=== PATIENT | female | born 1975 | race African-American/Black ===

== ENCOUNTER 2022-11-23 11:26 | Inpatient (IN) | payer OTHER ==
[2022-11-23 12:09] VITALS: BMI 27.4
[2022-11-23] MEDS ORDERED: guaiFENesin 600 MG TABLET.ER (FP) PO PRN (12:47)
[2022-11-23] MEDS ORDERED: BENZONATATE 200 MG CAPSULE PO PRN (12:47)
[2022-11-23] MEDS ORDERED: POLYETHYLENE GLYCOL (HEALTHYLAX) 3350 17 GM PACKET PO PRN (12:47)
[2022-11-23] MEDS ORDERED: MAGNESIUM HYDROX 2400MG/30ML ORAL SUSPENSION 30 ML CUP PO PRN (12:47)
[2022-11-23] MEDS ORDERED: NICOTINE POLACRILEX 2 MG GUM BUC PRN (12:47)
[2022-11-23] MEDS ORDERED: AMMONIUM LACTATE 12% LOTION 225 GM BOTTLE TP PRN (12:47)
[2022-11-23] MEDS ORDERED: MAG HYDROX/AL HYDROX/SIMETH 30 ML UNIT-DOSE CUP PO PRN (12:47)
[2022-11-23] MEDS ORDERED: P-EPHED 60MG/TRIPROLIDI 2.5MG TABLET PO PRN (12:47)
[2022-11-23] MEDS ORDERED: LOPERAMIDE HCL 2 MG CAPSULE PO PRN (12:47)
[2022-11-23] MEDS ORDERED: BENZOCAINE/MENTHOL (CHLORASEPTIC ) LOZENGE MM PRN (12:47)
[2022-11-23] MEDS ORDERED: COLLOIDAL OATMEAL 1 BAR EACH TP PRN (12:47)
[2022-11-23] MEDS ORDERED: TUBERCULIN PPD 5 TU/0.1ML VIAL ID ONE (14:53)
[2022-11-23] MEDS ORDERED: ALBUTEROL SO4 HFA INHALER IH PRN (15:06)
[2022-11-23 16:31] LABS: HEMATOCRIT 44.7 % (32.4-45.2); HEMOGLOBIN 15.2 GM/dL (10.7-15.3); MCH 33.4 pg (25.7-33.7); MEAN CELL VOLUME 98.1 fl (80-96); PLATELET COUNT 230 10^3/uL (134-434); RBC 4.55 M/mm3 (3.60-5.2); RDW 13.8 % (11.6-15.6); WHITE BLOOD COUNT 7.5 K/mm3 (4.0-10.0)
[2022-11-23 16:34] LABS: POTASSIUM 3.8 mmol/L (3.5-5.1)
[2022-11-23 16:36] LABS: ALBUMIN 3.6 g/dl (3.4-5.0); BLOOD UREA NITROGEN 11.5 mg/dL (7-18); CALCIUM 9.4 mg/dL (8.5-10.1)
[2022-11-23 16:40] LABS: CREATININE 0.8 mg/dL (0.55-1.3)
[2022-11-23 16:41] LABS: BILIRUBIN,TOTAL 0.4 mg/dL (0.2-1); TOT PROT 7.4 g/dl (6.4-8.2)
[2022-11-23 17:05] LABS: SYPHILIS W/ RPR CONF NON-REACTIVE (NONREACTIVE)
[2022-11-23] MEDS: CEPHALEXIN MONOHYDRATE 500 MG CAPSULE (UD) PO SCH ×2 (17:53→21:20)
[2022-11-23] MEDS: MELATONIN 5 MG TABLETS PO PRN (21:19)
[2022-11-23] MEDS: THIAMINE HCL 100 MG TABLET (FP) PO SCH (21:20)
[2022-11-23] MEDS: levETIRAcetam 500 MG TABLET (FP) PO SCH (21:22)
[2022-11-23] MEDS: BUDESONIDE/FORMETEROL FUMARATE 80/4.5 mcg INHALER IH SCH (21:22)
[2022-11-24] MEDS: PRENATAL VITAMINS W/ FOLIC ACID TABLET (FP) PO SCH (09:57)
[2022-11-24] MEDS: ARIPiprazole 10 MG TABLET PO SCH (09:59)
[2022-11-24] MEDS: DOCUSATE SODIUM 100 MG CAPSULE (FP) PO SCH (09:59)
[2022-11-24] MEDS: CEPHALEXIN MONOHYDRATE 500 MG CAPSULE (UD) PO SCH ×4 (09:59→21:38)
[2022-11-24] MEDS: levETIRAcetam 500 MG TABLET (FP) PO SCH ×2 (09:59→21:38)
[2022-11-24] MEDS: BUDESONIDE/FORMETEROL FUMARATE 80/4.5 mcg INHALER IH SCH ×2 (10:44→21:38)
[2022-11-24] MEDS: THIAMINE HCL 100 MG TABLET (FP) PO SCH (21:38)
[2022-11-24] MEDS: MELATONIN 5 MG TABLETS PO PRN (21:39)
[2022-11-25] MEDS: levETIRAcetam 500 MG TABLET (FP) PO SCH ×2 (09:46→21:42)
[2022-11-25] MEDS: DOCUSATE SODIUM 100 MG CAPSULE (FP) PO SCH (09:46)
[2022-11-25] MEDS: CEPHALEXIN MONOHYDRATE 500 MG CAPSULE (UD) PO SCH ×4 (09:46→21:43)
[2022-11-25] MEDS: BUDESONIDE/FORMETEROL FUMARATE 80/4.5 mcg INHALER IH SCH ×2 (09:46→21:42)
[2022-11-25] MEDS: PRENATAL VITAMINS W/ FOLIC ACID TABLET (FP) PO SCH (09:46)
[2022-11-25] MEDS: ARIPiprazole 10 MG TABLET PO SCH (09:46)
[2022-11-25] MEDS: LUMATEPERONE TOSYLATE 42 MG PO SCH (10:45)
[2022-11-25] MEDS: MELATONIN 5 MG TABLETS PO PRN (21:43)
[2022-11-25] MEDS: THIAMINE HCL 100 MG TABLET (FP) PO SCH (21:43)
[2022-11-26] MEDS: LUMATEPERONE TOSYLATE 42 MG PO SCH (07:07)
[2022-11-26] MEDS: levETIRAcetam 500 MG TABLET (FP) PO SCH ×2 (09:51→21:23)
[2022-11-26] MEDS: CEPHALEXIN MONOHYDRATE 500 MG CAPSULE (UD) PO SCH ×4 (09:51→21:22)
[2022-11-26] MEDS: ARIPiprazole 10 MG TABLET PO SCH (09:51)
[2022-11-26] MEDS: DOCUSATE SODIUM 100 MG CAPSULE (FP) PO SCH (09:51)
[2022-11-26] MEDS: PRENATAL VITAMINS W/ FOLIC ACID TABLET (FP) PO SCH (09:51)
[2022-11-26] MEDS: BUDESONIDE/FORMETEROL FUMARATE 80/4.5 mcg INHALER IH SCH ×2 (09:52→21:23)
[2022-11-26] MEDS ORDERED: BENZOCAINE 20 % GEL TUBE MM PRN (10:01)
[2022-11-26] MEDS: IBUPROFEN 600 MG TABLET (FP) PO PRN (11:49)
[2022-11-26] MEDS: MELATONIN 5 MG TABLETS PO PRN (21:23)
[2022-11-26] MEDS: THIAMINE HCL 100 MG TABLET (FP) PO SCH (21:23)
[2022-11-27] MEDS: LUMATEPERONE TOSYLATE 42 MG PO SCH (07:10)
[2022-11-27] MEDS: DOCUSATE SODIUM 100 MG CAPSULE (FP) PO SCH (09:57)
[2022-11-27] MEDS: levETIRAcetam 500 MG TABLET (FP) PO SCH ×2 (09:57→21:43)
[2022-11-27] MEDS: CEPHALEXIN MONOHYDRATE 500 MG CAPSULE (UD) PO SCH ×4 (09:57→21:43)
[2022-11-27] MEDS: BUDESONIDE/FORMETEROL FUMARATE 80/4.5 mcg INHALER IH SCH ×2 (09:57→21:44)
[2022-11-27] MEDS: ARIPiprazole 10 MG TABLET PO SCH (09:57)
[2022-11-27] MEDS: PRENATAL VITAMINS W/ FOLIC ACID TABLET (FP) PO SCH (09:58)
[2022-11-27] MEDS: IBUPROFEN 600 MG TABLET (FP) PO PRN (09:59)
[2022-11-27 13:38] LABS: URINE APPEARANCE CLEAR; URINE BILIRUBIN NEGATIVE (NEGATIVE); URINE COLOR YELLOW; URINE GLUCOSE (UA) NEGATIVE (NEGATIVE); URINE KETONE NEGATIVE (NEGATIVE); URINE LEUK ESTERASE NEGATIVE (NEGATIVE); URINE NITRITE NEGATIVE (NEGATIVE); URINE PROTEIN NEGATIVE (NEGATIVE); URINE UROBILINOGEN 0.2 mg/dL (0.2-1.0)
[2022-11-27] MEDS: IBUPROFEN 400 MG TABLET (FP) PO PRN (14:38)
[2022-11-27] MEDS: THIAMINE HCL 100 MG TABLET (FP) PO SCH (21:43)
[2022-11-28] MEDS: LUMATEPERONE TOSYLATE 42 MG PO SCH (07:35)
[2022-11-28] MEDS: BUDESONIDE/FORMETEROL FUMARATE 80/4.5 mcg INHALER IH SCH ×2 (09:55→22:57)
[2022-11-28] MEDS: DOCUSATE SODIUM 100 MG CAPSULE (FP) PO SCH (09:56)
[2022-11-28] MEDS: levETIRAcetam 500 MG TABLET (FP) PO SCH ×2 (09:56→22:57)
[2022-11-28] MEDS: ARIPiprazole 10 MG TABLET PO SCH (09:56)
[2022-11-28] MEDS: IBUPROFEN 400 MG TABLET (FP) PO PRN (09:56)
[2022-11-28] MEDS: CEPHALEXIN MONOHYDRATE 500 MG CAPSULE (UD) PO SCH ×4 (09:56→22:57)
[2022-11-28] MEDS: PRENATAL VITAMINS W/ FOLIC ACID TABLET (FP) PO SCH (09:56)
[2022-11-28] MEDS ORDERED: LORazepam 2 MG/ML SDV VIAL IM ONE (19:10)
[2022-11-28] MEDS: THIAMINE HCL 100 MG TABLET (FP) PO SCH (22:58)
[2022-11-29] MEDS: LUMATEPERONE TOSYLATE 42 MG PO SCH (07:03)
[2022-11-29] MEDS: BUDESONIDE/FORMETEROL FUMARATE 80/4.5 mcg INHALER IH SCH ×2 (10:26→21:36)
[2022-11-29] MEDS: CEPHALEXIN MONOHYDRATE 500 MG CAPSULE (UD) PO SCH ×4 (10:26→21:35)
[2022-11-29] MEDS: levETIRAcetam 500 MG TABLET (FP) PO SCH ×2 (10:26→21:35)
[2022-11-29] MEDS: DOCUSATE SODIUM 100 MG CAPSULE (FP) PO SCH (10:26)
[2022-11-29] MEDS: IBUPROFEN 400 MG TABLET (FP) PO PRN (10:26)
[2022-11-29] MEDS: ARIPiprazole 10 MG TABLET PO SCH (10:26)
[2022-11-29] MEDS: PRENATAL VITAMINS W/ FOLIC ACID TABLET (FP) PO SCH (10:32)
[2022-11-29 15:38] VITALS: RESP 18
[2022-11-29] MEDS: THIAMINE HCL 100 MG TABLET (FP) PO SCH (21:35)
[2022-11-30] MEDS: IBUPROFEN 600 MG TABLET (FP) PO PRN (01:11)
[2022-11-30] MEDS: LUMATEPERONE TOSYLATE 42 MG PO SCH (07:13)
[2022-11-30] MEDS: levETIRAcetam 500 MG TABLET (FP) PO SCH ×2 (09:54→21:21)
[2022-11-30] MEDS: ARIPiprazole 10 MG TABLET PO SCH (09:54)
[2022-11-30] MEDS: PRENATAL VITAMINS W/ FOLIC ACID TABLET (FP) PO SCH (09:54)
[2022-11-30] MEDS: CEPHALEXIN MONOHYDRATE 500 MG CAPSULE (UD) PO SCH ×2 (09:54→13:08)
[2022-11-30] MEDS: BUDESONIDE/FORMETEROL FUMARATE 80/4.5 mcg INHALER IH SCH ×2 (09:54→21:22)
[2022-11-30] MEDS: DOCUSATE SODIUM 100 MG CAPSULE (FP) PO SCH (09:54)
[2022-11-30] MEDS: MELATONIN 5 MG TABLETS PO PRN (21:22)
[2022-11-30] MEDS: THIAMINE HCL 100 MG TABLET (FP) PO SCH (21:22)
[2022-12-01] MEDS: LUMATEPERONE TOSYLATE 42 MG PO SCH (07:13)
[2022-12-01] MEDS: PRENATAL VITAMINS W/ FOLIC ACID TABLET (FP) PO SCH (10:12)
[2022-12-01] MEDS: ARIPiprazole 10 MG TABLET PO SCH (10:12)
[2022-12-01] MEDS: BUDESONIDE/FORMETEROL FUMARATE 80/4.5 mcg INHALER IH SCH ×2 (10:12→21:15)
[2022-12-01] MEDS: levETIRAcetam 500 MG TABLET (FP) PO SCH ×2 (10:12→21:16)
[2022-12-01] MEDS: DOCUSATE SODIUM 100 MG CAPSULE (FP) PO SCH (10:12)
[2022-12-01] MEDS: IBUPROFEN 600 MG TABLET (FP) PO PRN (20:40)
[2022-12-01] MEDS: MELATONIN 5 MG TABLETS PO PRN (21:16)
[2022-12-01] MEDS: THIAMINE HCL 100 MG TABLET (FP) PO SCH (21:16)
[2022-12-02] MEDS: LUMATEPERONE TOSYLATE 42 MG PO SCH (07:01)
[2022-12-02] MEDS: IBUPROFEN 600 MG TABLET (FP) PO PRN ×2 (09:02→21:19)
[2022-12-02] MEDS: PRENATAL VITAMINS W/ FOLIC ACID TABLET (FP) PO SCH (09:02)
[2022-12-02] MEDS: levETIRAcetam 500 MG TABLET (FP) PO SCH ×2 (09:02→21:19)
[2022-12-02] MEDS: ARIPiprazole 10 MG TABLET PO SCH (09:02)
[2022-12-02] MEDS: DOCUSATE SODIUM 100 MG CAPSULE (FP) PO SCH (09:02)
[2022-12-02] MEDS: BUDESONIDE/FORMETEROL FUMARATE 80/4.5 mcg INHALER IH SCH ×2 (09:03→21:59)
[2022-12-02] MEDS: THIAMINE HCL 100 MG TABLET (FP) PO SCH (21:19)
[2022-12-02] MEDS: MELATONIN 5 MG TABLETS PO PRN (21:19)
[2022-12-03] MEDS: LUMATEPERONE TOSYLATE 42 MG PO SCH (07:10)
[2022-12-03] MEDS: PRENATAL VITAMINS W/ FOLIC ACID TABLET (FP) PO SCH (09:45)
[2022-12-03] MEDS: BUDESONIDE/FORMETEROL FUMARATE 80/4.5 mcg INHALER IH SCH ×2 (09:45→21:24)
[2022-12-03] MEDS: ARIPiprazole 10 MG TABLET PO SCH (09:45)
[2022-12-03] MEDS: IBUPROFEN 400 MG TABLET (FP) PO PRN ×3 (09:46→21:25)
[2022-12-03] MEDS: levETIRAcetam 500 MG TABLET (FP) PO SCH ×2 (09:46→21:24)
[2022-12-03] MEDS: DOCUSATE SODIUM 100 MG CAPSULE (FP) PO SCH (09:46)
[2022-12-03] MEDS: NICOTINE 10 MG CARTRIDGE (INHALER) IH PRN (18:53)
[2022-12-03] MEDS: THIAMINE HCL 100 MG TABLET (FP) PO SCH (21:24)
[2022-12-04] MEDS: ACETAMINOPHEN 325 MG TABLET (FP) PO PRN ×3 (00:56→21:15)
[2022-12-04] MEDS: LUMATEPERONE TOSYLATE 42 MG PO SCH (07:55)
[2022-12-04] MEDS: BUDESONIDE/FORMETEROL FUMARATE 80/4.5 mcg INHALER IH SCH ×2 (09:32→21:14)
[2022-12-04] MEDS: PRENATAL VITAMINS W/ FOLIC ACID TABLET (FP) PO SCH (09:32)
[2022-12-04] MEDS: levETIRAcetam 500 MG TABLET (FP) PO SCH ×2 (09:32→21:15)
[2022-12-04] MEDS: ARIPiprazole 10 MG TABLET PO SCH (09:32)
[2022-12-04] MEDS: DOCUSATE SODIUM 100 MG CAPSULE (FP) PO SCH (09:32)
[2022-12-04] MEDS: IBUPROFEN 600 MG TABLET (FP) PO PRN (09:33)
[2022-12-04] MEDS: NICOTINE 10 MG CARTRIDGE (INHALER) IH PRN (17:52)
[2022-12-04] MEDS: MELATONIN 5 MG TABLETS PO PRN (21:15)
[2022-12-04] MEDS: THIAMINE HCL 100 MG TABLET (FP) PO SCH (21:15)
[2022-12-05] MEDS: LUMATEPERONE TOSYLATE 42 MG PO SCH (07:05)
[2022-12-05] MEDS: PRENATAL VITAMINS W/ FOLIC ACID TABLET (FP) PO SCH (09:56)
[2022-12-05] MEDS: ARIPiprazole 10 MG TABLET PO SCH (09:56)
[2022-12-05] MEDS: levETIRAcetam 500 MG TABLET (FP) PO SCH ×2 (09:57→21:25)
[2022-12-05] MEDS: DOCUSATE SODIUM 100 MG CAPSULE (FP) PO SCH (09:57)
[2022-12-05] MEDS: BUDESONIDE/FORMETEROL FUMARATE 80/4.5 mcg INHALER IH SCH ×2 (09:58→21:25)
[2022-12-05] MEDS: ACETAMINOPHEN 325 MG TABLET (FP) PO PRN ×2 (09:58→16:48)
[2022-12-05] MEDS ORDERED: ACETAMINOPHEN 325 MG TABLET (FP) ONE (16:47)
[2022-12-05] MEDS: THIAMINE HCL 100 MG TABLET (FP) PO SCH (21:25)
[2022-12-05] MEDS: MELATONIN 5 MG TABLETS PO PRN (21:25)
[2022-12-06] MEDS: LUMATEPERONE TOSYLATE 42 MG PO SCH (07:10)
[2022-12-06] MEDS: DOCUSATE SODIUM 100 MG CAPSULE (FP) PO SCH (09:56)
[2022-12-06] MEDS: ARIPiprazole 10 MG TABLET PO SCH (09:56)
[2022-12-06] MEDS: PRENATAL VITAMINS W/ FOLIC ACID TABLET (FP) PO SCH (09:56)
[2022-12-06] MEDS: levETIRAcetam 500 MG TABLET (FP) PO SCH ×3 (09:56→21:11)
[2022-12-06] MEDS: BUDESONIDE/FORMETEROL FUMARATE 80/4.5 mcg INHALER IH SCH ×2 (09:58→21:11)
[2022-12-06] MEDS: IBUPROFEN 600 MG TABLET (FP) PO PRN ×2 (09:59→20:18)
[2022-12-06] MEDS ORDERED: levETIRAcetam 500 MG TABLET (FP) PO ONE (10:01)
[2022-12-06] MEDS: ACETAMINOPHEN 325 MG TABLET (FP) PO PRN (11:59)
[2022-12-06] MEDS: THIAMINE HCL 100 MG TABLET (FP) PO SCH (21:11)
[2022-12-07] MEDS: ACETAMINOPHEN 325 MG TABLET (FP) PO PRN (06:11)
[2022-12-07] MEDS: LUMATEPERONE TOSYLATE 42 MG PO SCH (07:32)
[2022-12-07] MEDS: DOCUSATE SODIUM 100 MG CAPSULE (FP) PO SCH (10:06)
[2022-12-07] MEDS: PRENATAL VITAMINS W/ FOLIC ACID TABLET (FP) PO SCH (10:06)
[2022-12-07] MEDS: ARIPiprazole 10 MG TABLET PO SCH (10:06)
[2022-12-07] MEDS: BUDESONIDE/FORMETEROL FUMARATE 80/4.5 mcg INHALER IH SCH ×2 (10:06→21:19)
[2022-12-07] MEDS: levETIRAcetam 500 MG TABLET (FP) PO SCH ×2 (10:07→21:19)
[2022-12-07] MEDS: METHOCARBAMOL 500 MG TABLET PO PRN ×2 (10:08→21:19)
[2022-12-07] MEDS: IBUPROFEN 600 MG TABLET (FP) PO PRN (15:21)
[2022-12-07] MEDS: THIAMINE HCL 100 MG TABLET (FP) PO SCH (21:19)
[2022-12-07] MEDS: IBUPROFEN 400 MG TABLET (FP) PO PRN (21:20)
[2022-12-08] MEDS: LUMATEPERONE TOSYLATE 42 MG PO SCH (07:10)
[2022-12-08] MEDS: IBUPROFEN 400 MG TABLET (FP) PO PRN ×2 (07:15→21:19)
[2022-12-08] MEDS: METHOCARBAMOL 500 MG TABLET PO PRN ×2 (07:15→21:19)
[2022-12-08] MEDS: DOCUSATE SODIUM 100 MG CAPSULE (FP) PO SCH (10:09)
[2022-12-08] MEDS: PRENATAL VITAMINS W/ FOLIC ACID TABLET (FP) PO SCH (10:09)
[2022-12-08] MEDS: BUDESONIDE/FORMETEROL FUMARATE 80/4.5 mcg INHALER IH SCH ×2 (10:09→21:16)
[2022-12-08] MEDS: levETIRAcetam 500 MG TABLET (FP) PO SCH ×2 (10:09→21:16)
[2022-12-08] MEDS: ARIPiprazole 10 MG TABLET PO SCH (10:09)
[2022-12-08] MEDS: THIAMINE HCL 100 MG TABLET (FP) PO SCH (21:16)
[2022-12-08] MEDS: MELATONIN 5 MG TABLETS PO PRN (21:16)
[2022-12-09] MEDS: IBUPROFEN 400 MG TABLET (FP) PO PRN (06:35)
[2022-12-09] MEDS: LUMATEPERONE TOSYLATE 42 MG PO SCH (07:35)
[2022-12-09] MEDS: BUDESONIDE/FORMETEROL FUMARATE 80/4.5 mcg INHALER IH SCH ×2 (10:15→21:26)
[2022-12-09] MEDS: ARIPiprazole 10 MG TABLET PO SCH (10:15)
[2022-12-09] MEDS: levETIRAcetam 500 MG TABLET (FP) PO SCH ×2 (10:15→21:26)
[2022-12-09] MEDS: DOCUSATE SODIUM 100 MG CAPSULE (FP) PO SCH (10:15)
[2022-12-09] MEDS: PRENATAL VITAMINS W/ FOLIC ACID TABLET (FP) PO SCH (10:15)
[2022-12-09] MEDS: IBUPROFEN 600 MG TABLET (FP) PO PRN (14:46)
[2022-12-09] MEDS: METHOCARBAMOL 500 MG TABLET PO PRN (14:46)
[2022-12-09] MEDS: THIAMINE HCL 100 MG TABLET (FP) PO SCH (21:26)
[2022-12-10] MEDS: IBUPROFEN 600 MG TABLET (FP) PO PRN ×2 (06:34→21:32)
[2022-12-10] MEDS: METHOCARBAMOL 500 MG TABLET PO PRN ×2 (06:34→21:32)
[2022-12-10] MEDS: LUMATEPERONE TOSYLATE 42 MG PO SCH (07:11)
[2022-12-10] MEDS: ARIPiprazole 10 MG TABLET PO SCH (10:10)
[2022-12-10] MEDS: levETIRAcetam 500 MG TABLET (FP) PO SCH ×2 (10:10→21:32)
[2022-12-10] MEDS: BUDESONIDE/FORMETEROL FUMARATE 80/4.5 mcg INHALER IH SCH ×2 (10:10→21:32)
[2022-12-10] MEDS: PRENATAL VITAMINS W/ FOLIC ACID TABLET (FP) PO SCH (10:10)
[2022-12-10] MEDS: DOCUSATE SODIUM 100 MG CAPSULE (FP) PO SCH (10:10)
[2022-12-10] MEDS: THIAMINE HCL 100 MG TABLET (FP) PO SCH (21:32)
[2022-12-11] MEDS: MELATONIN 5 MG TABLETS PO PRN (00:39)
[2022-12-11] MEDS: METHOCARBAMOL 500 MG TABLET PO PRN (06:24)
[2022-12-11] MEDS: IBUPROFEN 600 MG TABLET (FP) PO PRN (06:24)
[2022-12-11] MEDS: LUMATEPERONE TOSYLATE 42 MG PO SCH (07:29)
[2022-12-11] MEDS: BUDESONIDE/FORMETEROL FUMARATE 80/4.5 mcg INHALER IH SCH ×2 (09:51→21:44)
[2022-12-11] MEDS: DOCUSATE SODIUM 100 MG CAPSULE (FP) PO SCH (09:51)
[2022-12-11] MEDS: PRENATAL VITAMINS W/ FOLIC ACID TABLET (FP) PO SCH (09:51)
[2022-12-11] MEDS: ARIPiprazole 10 MG TABLET PO SCH (09:52)
[2022-12-11] MEDS: levETIRAcetam 500 MG TABLET (FP) PO SCH ×2 (09:52→21:44)
[2022-12-11] MEDS: THIAMINE HCL 100 MG TABLET (FP) PO SCH (21:44)
[2022-12-12] MEDS: IBUPROFEN 400 MG TABLET (FP) PO PRN ×3 (07:40→21:54)
[2022-12-12] MEDS: LUMATEPERONE TOSYLATE 42 MG PO SCH (07:40)
[2022-12-12] MEDS: ARIPiprazole 10 MG TABLET PO SCH (11:42)
[2022-12-12] MEDS: levETIRAcetam 500 MG TABLET (FP) PO SCH ×2 (11:42→21:04)
[2022-12-12] MEDS: BUDESONIDE/FORMETEROL FUMARATE 80/4.5 mcg INHALER IH SCH ×2 (11:42→21:03)
[2022-12-12] MEDS: PRENATAL VITAMINS W/ FOLIC ACID TABLET (FP) PO SCH (11:43)
[2022-12-12] MEDS: DOCUSATE SODIUM 100 MG CAPSULE (FP) PO SCH (11:43)
[2022-12-12] MEDS: METHOCARBAMOL 500 MG TABLET PO PRN ×2 (18:28→21:03)
[2022-12-12] MEDS: MELATONIN 5 MG TABLETS PO PRN (21:04)
[2022-12-12] MEDS: THIAMINE HCL 100 MG TABLET (FP) PO SCH (21:04)
[2022-12-13] MEDS: IBUPROFEN 400 MG TABLET (FP) PO PRN (06:36)
[2022-12-13] MEDS: METHOCARBAMOL 500 MG TABLET PO PRN (06:36)
[2022-12-13] MEDS: LUMATEPERONE TOSYLATE 42 MG PO SCH (07:10)
[2022-12-13] MEDS: PRENATAL VITAMINS W/ FOLIC ACID TABLET (FP) PO SCH (09:51)
[2022-12-13] MEDS: ARIPiprazole 10 MG TABLET PO SCH (09:51)
[2022-12-13] MEDS: BUDESONIDE/FORMETEROL FUMARATE 80/4.5 mcg INHALER IH SCH ×2 (09:51→21:14)
[2022-12-13] MEDS: DOCUSATE SODIUM 100 MG CAPSULE (FP) PO SCH (09:52)
[2022-12-13] MEDS: levETIRAcetam 500 MG TABLET (FP) PO SCH ×2 (09:52→21:14)
[2022-12-13] MEDS: IBUPROFEN 600 MG TABLET (FP) PO PRN (09:52)
[2022-12-13] MEDS: THIAMINE HCL 100 MG TABLET (FP) PO SCH (21:14)
[2022-12-14] MEDS: IBUPROFEN 400 MG TABLET (FP) PO PRN (06:04)
[2022-12-14] MEDS: METHOCARBAMOL 500 MG TABLET PO PRN ×2 (06:04→14:10)
[2022-12-14] MEDS: LUMATEPERONE TOSYLATE 42 MG PO SCH (07:03)
[2022-12-14] MEDS: levETIRAcetam 500 MG TABLET (FP) PO SCH ×2 (09:53→21:28)
[2022-12-14] MEDS: BUDESONIDE/FORMETEROL FUMARATE 80/4.5 mcg INHALER IH SCH ×2 (09:53→21:28)
[2022-12-14] MEDS: ARIPiprazole 10 MG TABLET PO SCH (09:53)
[2022-12-14] MEDS: PRENATAL VITAMINS W/ FOLIC ACID TABLET (FP) PO SCH (09:53)
[2022-12-14] MEDS: DOCUSATE SODIUM 100 MG CAPSULE (FP) PO SCH (09:53)
[2022-12-14] MEDS: ACETAMINOPHEN 325 MG TABLET (FP) PO PRN (14:11)
[2022-12-14] MEDS: THIAMINE HCL 100 MG TABLET (FP) PO SCH (21:28)
[2022-12-15] MEDS: IBUPROFEN 600 MG TABLET (FP) PO PRN (04:19)
[2022-12-15] MEDS: LUMATEPERONE TOSYLATE 42 MG PO SCH (07:55)
[2022-12-15] MEDS: ARIPiprazole 10 MG TABLET PO SCH (10:32)
[2022-12-15] MEDS: BUDESONIDE/FORMETEROL FUMARATE 80/4.5 mcg INHALER IH SCH ×2 (10:32→22:11)
[2022-12-15] MEDS: levETIRAcetam 500 MG TABLET (FP) PO SCH ×2 (10:32→22:11)
[2022-12-15] MEDS: PRENATAL VITAMINS W/ FOLIC ACID TABLET (FP) PO SCH (10:32)
[2022-12-15] MEDS: DOCUSATE SODIUM 100 MG CAPSULE (FP) PO SCH (10:32)
[2022-12-15] MEDS: METHOCARBAMOL 500 MG TABLET PO PRN (22:11)
[2022-12-15] MEDS: THIAMINE HCL 100 MG TABLET (FP) PO SCH (22:11)
[2022-12-15] MEDS: IBUPROFEN 400 MG TABLET (FP) PO PRN (22:12)
[2022-12-16] MEDS: LUMATEPERONE TOSYLATE 42 MG PO SCH (07:03)
[2022-12-16] MEDS: ARIPiprazole 10 MG TABLET PO SCH (10:17)
[2022-12-16] MEDS: PRENATAL VITAMINS W/ FOLIC ACID TABLET (FP) PO SCH (10:17)
[2022-12-16] MEDS: BUDESONIDE/FORMETEROL FUMARATE 80/4.5 mcg INHALER IH SCH ×2 (10:17→22:33)
[2022-12-16] MEDS: DOCUSATE SODIUM 100 MG CAPSULE (FP) PO SCH (10:17)
[2022-12-16] MEDS: levETIRAcetam 500 MG TABLET (FP) PO SCH ×2 (10:18→22:33)
[2022-12-16] MEDS: IBUPROFEN 600 MG TABLET (FP) PO PRN ×2 (10:18→22:35)
[2022-12-16] MEDS: THIAMINE HCL 100 MG TABLET (FP) PO SCH (22:33)
[2022-12-16] MEDS: METHOCARBAMOL 500 MG TABLET PO PRN (22:35)
[2022-12-16] MEDS: MELATONIN 5 MG TABLETS PO PRN (22:35)
[2022-12-17] MEDS: IBUPROFEN 400 MG TABLET (FP) PO PRN ×2 (06:33→16:53)
[2022-12-17] MEDS: LUMATEPERONE TOSYLATE 42 MG PO SCH (07:20)
[2022-12-17] MEDS: DOCUSATE SODIUM 100 MG CAPSULE (FP) PO SCH (09:56)
[2022-12-17] MEDS: PRENATAL VITAMINS W/ FOLIC ACID TABLET (FP) PO SCH (09:56)
[2022-12-17] MEDS: ARIPiprazole 10 MG TABLET PO SCH (09:56)
[2022-12-17] MEDS: BUDESONIDE/FORMETEROL FUMARATE 80/4.5 mcg INHALER IH SCH ×2 (09:56→22:06)
[2022-12-17] MEDS: levETIRAcetam 500 MG TABLET (FP) PO SCH ×2 (09:56→21:40)
[2022-12-17] MEDS: METHOCARBAMOL 500 MG TABLET PO PRN (21:40)
[2022-12-17] MEDS: THIAMINE HCL 100 MG TABLET (FP) PO SCH (21:40)
[2022-12-17] MEDS: MELATONIN 5 MG TABLETS PO PRN (21:41)
[2022-12-17] MEDS: IBUPROFEN 600 MG TABLET (FP) PO PRN (21:41)
[2022-12-18] MEDS: IBUPROFEN 400 MG TABLET (FP) PO PRN (06:08)
[2022-12-18] MEDS: LUMATEPERONE TOSYLATE 42 MG PO SCH (07:46)
[2022-12-18 08:11] VITALS: BP 116/71; PULSE 63; TEMP 98
[2022-12-18] MEDS: ARIPiprazole 10 MG TABLET PO SCH (09:01)
[2022-12-18] MEDS: PRENATAL VITAMINS W/ FOLIC ACID TABLET (FP) PO SCH (09:01)
[2022-12-18] MEDS: DOCUSATE SODIUM 100 MG CAPSULE (FP) PO SCH (09:01)
[2022-12-18] MEDS: BUDESONIDE/FORMETEROL FUMARATE 80/4.5 mcg INHALER IH SCH (09:01)
[2022-12-18] MEDS: levETIRAcetam 500 MG TABLET (FP) PO SCH (09:01)
== END 2022-12-18 09:35 | disposition home or self-care (01) | DRG 772 ==
LOC: YASAS 11:26 → Y5N 13:21
PROVIDERS: ADMIT Allergy & Immunology; ATTEND Psychiatry & Neurology Pain Medicine
PROC: HZ42ZZZ Group Counseling for Substance Abuse Treatment, Cognitive-Behavioral (ICD-10-PCS; principal; 2022-11-23)
DX: F14.20 Cocaine dependence, uncomplicated (principal); F17.210 Nicotine dependence, cigarettes, uncomplicated; F39 Unspecified mood [affective] disorder; G40.909 Epilepsy, unspecified, not intractable, without status epilepticus; K12.0 Recurrent oral aphthae; S62.316D Displaced fracture of base of fifth metacarpal bone, right hand, subsequent encounter for fracture with routine healing; X58.XXXD Exposure to other specified factors, subsequent encounter; Z86.59 Personal history of other mental and behavioral disorders; Z28.310 Unvaccinated for COVID-19; Z28.9 Immunization not carried out for unspecified reason
CPT/HCPCS: 36415; 73110-TC-RT-FY; 73130-TC-RT-FY; 80053; 80177; 81003; 82962; 85027; 86780; 86803; 87811; C9803-CS; U0003; U0005

== ENCOUNTER 2022-11-28 19:32 | Emergency (ER) | payer OTHER ==
[2022-11-28 19:39] VITALS: BP 146/79; PULSE 84; RESP 20; TEMP 98; BMI 25.0
[2022-11-28] MEDS ORDERED: levETIRAcetam 500 MG/5 ML INJECTION VIAL IVPB ONE ×2 (20:18→20:46)
[2022-11-28 21:23] LABS: EOS % 5.4 % (0-4.5); HEMATOCRIT 37.6 % (32.4-45.2); HEMOGLOBIN 13.1 GM/dL (10.7-15.3); LYMPH % 37.3 % (8-40); MCH 33.1 pg (25.7-33.7); MCHC 34.9 g/dl (32.0-36.0); MEAN CELL VOLUME 94.9 fl (80-96); MEAN PLT VOLUME 8.4 fl (7.5-11.1); MONO % 7.2 % (3.8-10.2); NEUT % 49.1 % (42.8-82.8); PLATELET COUNT 247 10^3/uL (134-434); RBC 3.96 M/mm3 (3.60-5.2); RDW 15.6 % (11.6-15.6); WHITE BLOOD COUNT 8.1 K/mm3 (4.0-10.0)
[2022-11-28 21:47] LABS: URINE APPEARANCE CLOUDY; URINE BILIRUBIN NEGATIVE (NEGATIVE); URINE COLOR YELLOW; URINE GLUCOSE (UA) NEGATIVE (NEGATIVE); URINE KETONE NEGATIVE (NEGATIVE); URINE LEUK ESTERASE NEGATIVE (NEGATIVE); URINE NITRITE NEGATIVE (NEGATIVE); URINE PROTEIN NEGATIVE (NEGATIVE); URINE UROBILINOGEN 0.2 mg/dL (0.2-1.0)
[2022-11-28 21:48] LABS: CHLORIDE 106 mmol/L (98-107); SODIUM 136 mmol/L (136-145)
[2022-11-28 21:50] LABS: CALCIUM 8.9 mg/dL (8.5-10.1)
[2022-11-28 21:51] LABS: ALBUMIN 3.2 g/dl (3.4-5.0); BLOOD UREA NITROGEN 23.1 mg/dL (7-18); CO2 27 mmol/L (21-32); GLUCOSE,RANDOM 93 mg/dL (74-106)
[2022-11-28 21:53] LABS: CREATININE 0.8 mg/dL (0.55-1.3)
[2022-11-28 21:54] LABS: PHOSPHOROUS 4.6 mg/dL (2.5-4.9); SGOT/AST 43 U/L (15-37); SGPT/ALT 14 U/L (13-61)
[2022-11-28 21:55] LABS: BILIRUBIN,TOTAL 0.2 mg/dL (0.2-1); TOT PROT 6.8 g/dl (6.4-8.2)
[2022-11-28 21:56] LABS: ALK PHOS 69 U/L (45-117)
[2022-11-28 21:59] LABS: ANION GAP 4 MMOL/L (8-16); POTASSIUM 6.4 mmol/L (3.5-5.1)
[2022-11-29 02:39] LABS: POTASSIUM 5.4 mmol/L (3.5-5.1)
[2022-11-29 02:40] LABS: CALCIUM 8.4 mg/dL (8.5-10.1)
[2022-11-29 02:44] LABS: CREATININE 0.7 mg/dL (0.55-1.3)
[2022-11-29 03:17] LABS: BLOOD UREA NITROGEN 23.8 mg/dL (7-18)
== END 2022-11-29 03:56 | disposition home or self-care (01) ==
LOC: JER 19:32
PROC: 3E033GC Introduction of Other Therapeutic Substance into Peripheral Vein, Percutaneous Approach (ICD-10-PCS; principal; 2022-11-28)
DX: G40.909 Epilepsy, unspecified, not intractable, without status epilepticus (principal); Z20.822 Contact with and (suspected) exposure to COVID-19
CPT/HCPCS: 0241U-QW; 36415; 71045-TC-FY; 80048; 80053; 80177; 81003; 83735; 84100; 85025; 87086; 93005; 93010; 99285-25